=== PATIENT | female | born 1965 | race Caucasian/White ===

== ENCOUNTER → 2016-07-24 | Outpatient (CLI) | payer MEDICAID ==
[~2016-07-24] MED LIST: AMBIEN 5MG TABLE5 MG PO; AMITRIPTYLINE H50 M1 PO; APRESOLINE 25MG25 MG PO; ASPI325T6 PO; CATAFLAM50 MG PO; CELEBREX200 MG PO; CELEXA40 MG PO; COLACE 100100 MG/CAP PO; CYMBALTA 30MG30 MG PO; CYMBALTA 60MG60 MG PO; DESYREL 100MG100 MG PO; FENTANYL 100MCG TP; FENTANYL 25 MCG TOP; IMDUR 60MG60 MG/TAB PO; IMDUR60 MG PO; IMITREX 6M6 MG/0.5 M SQ; KLONOPIN 1MG1 MG PO; LASIX 20MG TABL20 MG PO; LASIX20 MG PO; LEXAPRO20 MG PO; LINZESS145CAP PO; LIPITOR 10MG10 MG PO; LISINOPRIL20 MG PO; LUNESTA3 MG PO; MELATONIN3 M1 PO; MUCINEX 60600 MG/TA1 PO; NEURONTIN400 MG PO; NEURONTIN400 MG/CAP PO; NEXIUM 40MG40 MG PO; NEXIUM I.V. 40M40 MG PO; NORCO 325 MG-7.1 TAB PO; POTASSIUM20 MEQ PO; PRINIVIL40 MG PO; REMERON 15M15 MG/TA1 PO; RESTORIL30 MG PO; RETIN-A0.025% TP; ROXICODONE 55 MG/TAB PO; SEROQUEL 2525 MG/TAB PO; SOMA 350MG350 MG/TAB PO; TOPAMAX50 MG PO; TOPROL XL 50MG50 MG PO; TOPROL XL50 MG PO; TRANSZONE3 MG PO; TRETINOIN 0.025% TP; TYLENOL EXTRA500 M1 PO; ULTRAM 50MG TAB50 MG PO; VALIUM 10MG10 MG/TAB PO; XANAX 0.5MG0.5 MG PO; XANAX0.5 MG PO; ZESTRIL 20MG TA20 MG PO; ZOFRAN8 MG PO
== END ==
LOC: COL.RAD 13:34
DX: I71.4 Abdominal aortic aneurysm, without rupture (principal); I51.7 Cardiomegaly; K44.9 Diaphragmatic hernia without obstruction or gangrene
CPT/HCPCS: Q9967

== ENCOUNTER 2017-04-06 16:41 | Emergency (ER) | payer MEDICAID ==
[~2017-04-06] VITALS: Ht 170.2 cm; Wt 101.4 kg
[2017-04-06 17:06] VITALS: BP 143/80; PULSE 96; TEMP 99.9
[2017-04-06 19:23] LABS: BASO # 0.1 (0.0-0.2); BASO % 0.7 % (0.0-2.0); EOS # 0.1 (0.0-0.7); EOS % 1.6 % (0-4.0); GRAN # 4.4 (1.4-6.5); GRAN % 58.6 % (42.2-75.2); HEMATOCRIT 38.1 % (37.0-47.0); HEMOGLOBIN 12.7 g/dl (12.5-16.0); LYMPH # 2.4 (1.2-3.4); LYMPH % 31.7 % (20.0-51.0); MEAN CELL VOLUME 95 fl (80.0-100.0); MEAN CORPUSCULAR HEMOGLOBIN 32 pg (27.0-31.0); MEAN CORPUSCULAR HGB CONC 33 g/dl (33.0-37.0); MEAN PLATELET VOLUME 10.8 fl (7.4-10.4); MONO # 0.5 (0.1-0.6); MONO % 7.1 % (1.7-9.3); PLATELET COUNT 175 K/mm3 (130-400); RED BLOOD COUNT 4.02 M/mm3 (4.10-5.30); REDCELL DISTRIBUTION WIDTH-CV 12.7 % (11.5-14.5)
[2017-04-06 19:32] LABS: ALBUMIN 4.1 gm/dL (3.5-5.0); BILIRUBIN,TOTAL 0.4 mg/dL (0.0-1.0); CALCIUM 9.1 mg/dL (8.4-10.2); CREATININE, serum 0.86 mg/dL (0.52-1.25); POTASSIUM 3.5 mmol/L (3.4-5.0); TOTAL PROTEIN 7.1 gm/dL (6.4-8.2)
[2017-04-06 20:16] LABS: COLLECTION METHOD CLEAN CATCH
[2017-04-06 20:22] LABS: PH 6 (5-8); SQUAMOUS EPITHELIAL None Seen /hpf; URINE APPEARANCE Clear; URINE BACTERIA None Seen /hpf; URINE BILIRUBIN Negative (NEGATIVE); URINE BLOOD Negative (NEGATIVE); URINE COLOR Straw; URINE GLUCOSE Negative (NEGATIVE); URINE KETONE Negative (NEGATIVE); URINE LEUKOCYTE ESTERASE Negative (NEGATIVE); URINE NITRATE Negative (NEGATIVE); URINE PROTEIN(semi-quant) Negative (NEGATIVE); URINE RBC 0-2 /hpf; URINE UROBILINOGEN Negative (NEGATIVE)
[2017-04-06] MEDS ORDERED: PERCOCET 325 MG1 TA2 PO (21:07)
== END 2017-04-06 21:38 | disposition home or self-care (01) ==
LOC: COL.ER 16:41
PROVIDERS: Emergency Medicine
DX: M54.16 Radiculopathy, lumbar region (principal); K21.9 Gastro-esophageal reflux disease without esophagitis; E78.00 Pure hypercholesterolemia, unspecified; Z87.891 Personal history of nicotine dependence
CPT/HCPCS: J1170; J2405

== ENCOUNTER → 2017-06-29 | Outpatient (CLI) | payer MEDICAID ==
[~2017-06-29] MED LIST changes: +PERCOCET 325 MG1 TA2 PO
== END ==
LOC: MC.RAD 13:58
DX: Z12.31 Encounter for screening mammogram for malignant neoplasm of breast (principal)

== ENCOUNTER 2017-07-03 02:05 | Inpatient (IN) | payer MEDICAID ==
[~2017-07-03] VITALS: Ht 170.2 cm; Wt 94.8 kg
[2017-07-03] VITALS (1160 sets, daily range): BP systolic 135–165; BP diastolic 82–122; PULSE 55–77; TEMP 98–98.7; O2SAT 73–100
[~2017-07-03 02:05] MED LIST changes: +K-TAB10; -POTASSIUM20 MEQ PO
[2017-07-03 04:16] LABS: BASO % 0.4 % (0.0-2.0); EOS # 0.1 (0.0-0.7); EOS % 0.9 % (0-4.0); GRAN # 4.5 (1.4-6.5); GRAN % 64.3 % (42.2-75.2); LYMPH # 1.9 (1.2-3.4); LYMPH % 26.5 % (20.0-51.0); MEAN CELL VOLUME 92 fl (80.0-100.0); MEAN CORPUSCULAR HGB CONC 33 g/dl (33.0-37.0); MONO # 0.5 (0.1-0.6); MONO % 7.6 % (1.7-9.3); PLATELET COUNT 143 K/mm3 (130-400); RED BLOOD COUNT 3.82 M/mm3 (4.10-5.30); REDCELL DISTRIBUTION WIDTH-CV 13.9 % (11.5-14.5)
[2017-07-03 04:17] LABS: HEMATOCRIT 35.3 % (37.0-47.0); HEMOGLOBIN 11.7 g/dl (12.5-16.0); MEAN CORPUSCULAR HEMOGLOBIN 31 pg (27.0-31.0)
[2017-07-03 04:27] LABS: ALBUMIN 3.5 gm/dL (3.5-5.0); BILIRUBIN,TOTAL 0.5 mg/dL (0.0-1.0); CALCIUM 8.5 mg/dL (8.4-10.2); CREATININE, serum 0.62 mg/dL (0.52-1.25); MAGNESIUM 1.8 mg/dL (1.6-2.3); POTASSIUM 3.2 mmol/L (3.4-5.0)
[2017-07-03 04:43] LABS: TROPONIN-I 0.249 ng/mL (0.000-0.034)
[2017-07-03 05:38] LABS: INR 1.3 (0.8-3.0); PROTHROMBIN TIME 14.8 SECONDS (9.7-12.8)
[2017-07-03 05:40] LABS: PARTIAL THROMBOPLASTIN TIME 32.9 SECONDS (26.0-37.0)
[2017-07-03 06:18] LABS: ARTERIAL BLD GAS O2 SATURATION 95.7 % (92-100); ARTERIAL BLD GAS TCO2 CT 29.5; ARTERIAL BLOOD GAS HCO3 28.1 meq/L (22-26); ARTERIAL BLOOD GAS PCO2 45.2 mmHg (35-45); ARTERIAL BLOOD GAS pH 7.41 (7.35-7.45)
[2017-07-03] MEDS ORDERED: LOPRESSOR 225 MG/TAB PO (07:05)
[2017-07-03] MEDS ORDERED: RESTORIL30 MG PO ×2 (07:05→16:19)
[2017-07-03] MEDS ORDERED: MINIPRESS2 MG PO (07:07)
[2017-07-03] MEDS ORDERED: CATAPRES-TTS 30.3 MG TD (07:17)
[2017-07-03] MEDS ORDERED: REQUIP 1MG T1 MG/TAB PO (07:18)
[2017-07-03] MEDS ORDERED: SAVELLA50 MG PO (07:18)
[2017-07-03] MEDS ORDERED: CATAFLAM50 MG PO (07:18)
[2017-07-03] MEDS ORDERED: AMBIEN CR 12.12.5 MG PO (07:19)
[2017-07-03] MEDS ORDERED: COZAAR100 MG PO (07:19)
[2017-07-03] MEDS ORDERED: IRON TABLETS325 MG PO (07:19)
[2017-07-03] MEDS ORDERED: PROZAC40 MG PO (07:20)
[2017-07-03 11:28] LABS: TRICYCLIC ANTIDEPRESS URINE NEGATIVE
[2017-07-03] MEDS ORDERED: CELEXA40 MG PO (16:05)
[2017-07-03] MEDS ORDERED: TOPAMAX 100MG100 M1 PO (16:07)
[2017-07-04] VITALS (656 sets, daily range): BP systolic 147–202; BP diastolic 87–109; PULSE 52–131; TEMP 97.6–98.3; O2SAT 77–100
[2017-07-05 00:21] VITALS: BP 172/85; PULSE 75; TEMP 98.2
[2017-07-05 03:30] VITALS: BP 137/69; PULSE 68; TEMP 98.1
[2017-07-05 06:26] LABS: BASO % 0.4 % (0.0-2.0); EOS # 0.2 (0.0-0.7); EOS % 4.9 % (0-4.0); GRAN # 2.7 (1.4-6.5); GRAN % 60.2 % (42.2-75.2); LYMPH # 1.1 (1.2-3.4); LYMPH % 23.4 % (20.0-51.0); MEAN CELL VOLUME 95 fl (80.0-100.0); MEAN CORPUSCULAR HGB CONC 32 g/dl (33.0-37.0); MEAN PLATELET VOLUME 11.5 fl (7.4-10.4); MONO # 0.5 (0.1-0.6); MONO % 10.7 % (1.7-9.3); PLATELET COUNT 142 K/mm3 (130-400); REDCELL DISTRIBUTION WIDTH-CV 13.9 % (11.5-14.5)
[2017-07-05 06:39] LABS: HEMATOCRIT 30.5 % (37.0-47.0); HEMOGLOBIN 9.8 g/dl (12.5-16.0); MEAN CORPUSCULAR HEMOGLOBIN 31 pg (27.0-31.0)
[2017-07-05 06:50] LABS: CALCIUM 8.2 mg/dL (8.4-10.2); CREATININE, serum 0.55 mg/dL (0.52-1.25); POTASSIUM 3.8 mmol/L (3.4-5.0)
[2017-07-05 07:42] VITALS: BP 159/85; PULSE 59; TEMP 98.1
[2017-07-05 11:39] VITALS: BP 149/77; PULSE 96; TEMP 98.5
[2017-07-05 15:57] VITALS: BP 153/92; PULSE 63; TEMP 98.3
[2017-07-05 20:28] VITALS: BP 165/95; PULSE 83; TEMP 98.6
[2017-07-06 00:41] VITALS: BP 155/82; PULSE 71; TEMP 98.6
[2017-07-06 05:22] VITALS: BP 157/88; PULSE 72; TEMP 98.6
[2017-07-06 06:34] LABS: BASO % 0.4 % (0.0-2.0); EOS # 0.3 (0.0-0.7); EOS % 5.1 % (0-4.0); GRAN # 2.9 (1.4-6.5); GRAN % 57.4 % (42.2-75.2); LYMPH # 1.4 (1.2-3.4); LYMPH % 27.5 % (20.0-51.0); MEAN CELL VOLUME 94 fl (80.0-100.0); MEAN CORPUSCULAR HGB CONC 33 g/dl (33.0-37.0); MEAN PLATELET VOLUME 11.2 fl (7.4-10.4); MONO # 0.5 (0.1-0.6); MONO % 8.8 % (1.7-9.3); PLATELET COUNT 168 K/mm3 (130-400); RED BLOOD COUNT 3.31 M/mm3 (4.10-5.30); REDCELL DISTRIBUTION WIDTH-CV 13.9 % (11.5-14.5)
[2017-07-06 06:42] LABS: ALBUMIN 3.2 gm/dL (3.5-5.0); BILIRUBIN,TOTAL 0.3 mg/dL (0.0-1.0); CREATININE, serum 0.61 mg/dL (0.52-1.25); HEMOGLOBIN 10.1 g/dl (12.5-16.0); MAGNESIUM 1.7 mg/dL (1.6-2.3); MEAN CORPUSCULAR HEMOGLOBIN 31 pg (27.0-31.0); POTASSIUM 3.3 mmol/L (3.4-5.0); TOTAL PROTEIN 6.4 gm/dL (6.4-8.2)
[2017-07-06 07:38] VITALS: BP 159/93; PULSE 70; TEMP 98.3
[2017-07-06] MEDS ORDERED: LEVAQUIN 750MG750 M1 PO (08:41)
[2017-07-06] MEDS ORDERED: PROAIR HFA0.09 MG/AC IH (08:42)
[2017-07-06] MEDS ORDERED: BRILINTA90 MG PO (08:42)
[2017-07-06] MEDS ORDERED: IMDUR 30MG30 MG/TAB PO (08:43)
[2017-07-06] MEDS ORDERED: ASPIRIN E.C. 8181 MG PO (08:43)
[2017-07-06] MEDS ORDERED: NORCO 325 MG-51 TAB PO (09:02)
[2017-07-06 12:11] VITALS: BP 160/90; PULSE 85; TEMP 98.5
[2017-07-06 15:47] LABS: TRICYCLIC ANTIDEPRESS URINE NEGATIVE
== END 2017-07-06 16:29 | disposition home or self-care (01) | DRG 193 ==
LOC: IMCU 02:05 → ICU 02:07 → MEDICAL 07-04 15:09
PROVIDERS: Internal Medicine; Internal Medicine Pulmonary Disease; Nurse Practitioner Family
PROC: 02HV33Z Insertion of Infusion Device into Superior Vena Cava, Percutaneous Approach (ICD-10-PCS; principal; 2017-07-04)
DX: J15.9 Unspecified bacterial pneumonia (principal); I21.A1 Myocardial infarction type 2; J96.01 Acute respiratory failure with hypoxia; I16.0 Hypertensive urgency; I10 Essential (primary) hypertension; M79.7 Fibromyalgia; G89.21 Chronic pain due to trauma; M54.5 Low back pain; Z87.891 Personal history of nicotine dependence; E87.6 Hypokalemia; F11.10 Opioid abuse, uncomplicated; F15.10 Other stimulant abuse, uncomplicated; I35.1 Nonrheumatic aortic (valve) insufficiency
CPT/HCPCS: 99222; 99223-AI; 99233-AI; 99239; C1751; J1644; J1650; J2270; J2543; J3370; J7030; J7040; J7050

== ENCOUNTER → 2017-07-18 | Outpatient (CLI) | payer MEDICAID ==
[~2017-07-18] MED LIST changes: +AMBIEN CR 12.12.5 MG PO; +ASPIRIN E.C. 8181 MG PO; +BRILINTA90 MG PO; +CATAPRES-TTS 30.3 MG TD; +COZAAR100 MG PO; +IMDUR 30MG30 MG/TAB PO; +IRON TABLETS325 MG PO; +LEVAQUIN 750MG750 M1 PO; +LOPRESSOR 225 MG/TAB PO; +MINIPRESS2 MG PO; +NORCO 325 MG-51 TAB PO; +PROAIR HFA0.09 MG/AC IH; +PROZAC40 MG PO; +REQUIP 1MG T1 MG/TAB PO; +SAVELLA50 MG PO; +TOPAMAX 100MG100 M1 PO
[2017-07-18 16:06] LABS: BASO # 0.1 (0.0-0.2); EOS # 0.2 (0.0-0.7); EOS % 3.6 % (0-4.0); GRAN # 3.1 (1.4-6.5); GRAN % 51.3 % (42.2-75.2); LYMPH # 2.4 (1.2-3.4); LYMPH % 39.1 % (20.0-51.0); MEAN CELL VOLUME 94 fl (80.0-100.0); MEAN CORPUSCULAR HEMOGLOBIN 31 pg (27.0-31.0); MEAN CORPUSCULAR HGB CONC 33 g/dl (33.0-37.0); MEAN PLATELET VOLUME 10.4 fl (7.4-10.4); MONO # 0.3 (0.1-0.6); MONO % 4.8 % (1.7-9.3); PLATELET COUNT 260 K/mm3 (130-400); RED BLOOD COUNT 3.87 M/mm3 (4.10-5.30); REDCELL DISTRIBUTION WIDTH-CV 13.8 % (11.5-14.5)
[2017-07-18 16:09] LABS: HEMATOCRIT 36.3 % (37.0-47.0)
[2017-07-18 23:43] LABS: PROCALCITONIN <0.02 ng/mL (0.00-0.09)
== END ==
LOC: COL.RAD 15:33
PROVIDERS: Internal Medicine Pulmonary Disease
DX: I51.7 Cardiomegaly (principal); J18.9 Pneumonia, unspecified organism

== ENCOUNTER 2017-07-19 15:44 | Emergency (ER) | payer MEDICAID ==
[~2017-07-19] VITALS: Ht 170.2 cm; Wt 89.5 kg
[2017-07-19 16:29] LABS: BASO % 1.1 % (0.0-2.0); EOS # 0.2 (0.0-0.7); EOS % 5.2 % (0-4.0); GRAN # 1.5 (1.4-6.5); GRAN % 40.5 % (42.2-75.2); HEMOGLOBIN 10.7 g/dl (12.5-16.0); LYMPH # 1.7 (1.2-3.4); MEAN CELL VOLUME 94 fl (80.0-100.0); MEAN CORPUSCULAR HEMOGLOBIN 30 pg (27.0-31.0); MEAN CORPUSCULAR HGB CONC 32 g/dl (33.0-37.0); MEAN PLATELET VOLUME 10.8 fl (7.4-10.4); MONO # 0.3 (0.1-0.6); MONO % 6.9 % (1.7-9.3); PLATELET COUNT 243 K/mm3 (130-400); RED BLOOD COUNT 3.55 M/mm3 (4.10-5.30); REDCELL DISTRIBUTION WIDTH-CV 13.9 % (11.5-14.5)
[2017-07-19 16:30] LABS: HEMATOCRIT 33.3 % (37.0-47.0)
[2017-07-19 16:42] LABS: ALANINE AMINOTRANSFERASE 251 U/L (9-52); ALBUMIN 3.6 gm/dL (3.5-5.0); ALKALINE PHOSPHATASE 151 U/L (50-136); ANION GAP 12 mmol/L (7-16); AST,SGOT 221 U/L (15-37); BILIRUBIN,TOTAL 0.5 mg/dL (0.0-1.0); BLOOD UREA NITROGEN 12 mg/dL (7-17); CALCIUM 8.8 mg/dL (8.4-10.2); CARBON DIOXIDE 25 mmol/L (22-30); CHLORIDE 105 mmol/L (98-107); CREATININE, serum 0.75 mg/dL (0.52-1.25); GLUCOSE 103 mg/dL (74-106); POTASSIUM 4.1 mmol/L (3.4-5.0); SODIUM 142 mmol/L (137-145); TOTAL PROTEIN 6.8 gm/dL (6.4-8.2)
[2017-07-19 16:44] LABS: ACETAMINOPHEN < 10 ug/mL (10-30); ALCOHOL(ethanol),MEDICAL < 10 mg/dL; C-REACTIVE PROTEIN < 0.5 mg/dL (0.0-0.9); SALICYLATE < 1.0 mg/dL
[2017-07-19 16:45] LABS: COLLECTION METHOD CLEAN CATCH
[2017-07-19 16:51] LABS: TROPONIN-I 0.026 ng/mL (0.000-0.034)
[2017-07-19 16:51] LABS: PH 6 (5-8); SQUAMOUS EPITHELIAL 0-2 /hpf; URINE APPEARANCE Clear; URINE BACTERIA None Seen /hpf; URINE BILIRUBIN Negative (NEGATIVE); URINE BLOOD Negative (NEGATIVE); URINE COLOR Yellow; URINE GLUCOSE Negative (NEGATIVE); URINE KETONE Negative (NEGATIVE); URINE LEUKOCYTE ESTERASE Negative (NEGATIVE); URINE NITRATE Negative (NEGATIVE); URINE PROTEIN(semi-quant) Negative (NEGATIVE); URINE RBC 0-2 /hpf; URINE UROBILINOGEN Negative (NEGATIVE)
[2017-07-19 16:54] VITALS: TEMP 97
[2017-07-19 17:02] LABS: TRICYCLIC ANTIDEPRESS URINE NEGATIVE
[2017-07-19 18:52] VITALS: BP 117/75; PULSE 53
== END 2017-07-19 18:53 | disposition home or self-care (01) ==
LOC: COL.ER 15:44
PROVIDERS: Emergency Medicine
DX: R07.9 Chest pain, unspecified (principal); R41.0 Disorientation, unspecified; I25.2 Old myocardial infarction; I10 Essential (primary) hypertension; J45.909 Unspecified asthma, uncomplicated; Z87.39 Personal history of other diseases of the musculoskeletal system and connective tissue; Z87.891 Personal history of nicotine dependence

== ENCOUNTER 2017-08-17 19:18 | Emergency (ER) | payer MEDICAID ==
[~2017-08-17] VITALS: Ht 170.2 cm; Wt 86.4 kg
[2017-08-17 19:19] VITALS: TEMP 98
[2017-08-17 20:10] LABS: BASO % 0.5 % (0.0-2.0); EOS % 0.7 % (0-4.0); GRAN # 2.6 (1.4-6.5); GRAN % 60.8 % (42.2-75.2); HEMATOCRIT 37.1 % (37.0-47.0); HEMOGLOBIN 12.6 g/dl (12.5-16.0); LYMPH # 1.4 (1.2-3.4); LYMPH % 33.1 % (20.0-51.0); MEAN CELL VOLUME 92 fl (80.0-100.0); MEAN CORPUSCULAR HEMOGLOBIN 31 pg (27.0-31.0); MEAN CORPUSCULAR HGB CONC 34 g/dl (33.0-37.0); MEAN PLATELET VOLUME 10.4 fl (7.4-10.4); MONO # 0.2 (0.1-0.6); MONO % 4.7 % (1.7-9.3); PLATELET COUNT 214 K/mm3 (130-400); RED BLOOD COUNT 4.04 M/mm3 (4.10-5.30); REDCELL DISTRIBUTION WIDTH-CV 13.2 % (11.5-14.5)
[2017-08-17 20:20] LABS: ALBUMIN 3.9 gm/dL (3.5-5.0); BILIRUBIN,TOTAL 0.5 mg/dL (0.0-1.0); CALCIUM 8.8 mg/dL (8.4-10.2); CREATININE, serum 0.73 mg/dL (0.52-1.25); POTASSIUM 3.5 mmol/L (3.4-5.0); TOTAL PROTEIN 7.2 gm/dL (6.4-8.2)
[2017-08-17 20:45] VITALS: BP 122/67; PULSE 85
== END 2017-08-17 22:03 | disposition home or self-care (01) ==
LOC: COL.ER 19:18
PROVIDERS: Family Medicine
DX: S06.0X0A Concussion without loss of consciousness, initial encounter (principal); S05.12XA Contusion of eyeball and orbital tissues, left eye, initial encounter; R41.0 Disorientation, unspecified; F10.129 Alcohol abuse with intoxication, unspecified; I10 Essential (primary) hypertension; F41.9 Anxiety disorder, unspecified; Y04.2XXA Assault by strike against or bumped into by another person, initial encounter; Y90.6 Blood alcohol level of 120-199 mg/100 ml

== ENCOUNTER → 2017-10-04 | Outpatient (REF) | LOC: COL.LAB 14:16 | DX: Z01.89 Encounter for other specified special examinations (principal) ==

== ENCOUNTER → 2018-01-01 | Outpatient (CLI) | payer MEDICAID | LOC: COL.PUL 12-12 10:00 | DX: R06.02 Shortness of breath (principal); Z87.891 Personal history of nicotine dependence | CPT/HCPCS: J7674 ==

== ENCOUNTER 2018-02-25 12:06 | Day surgery (SDC) | payer MEDICAID ==
[2018-02-25] VITALS (12 sets, daily range): BP systolic 114–188; BP diastolic 58–91; PULSE 56–95; TEMP 97.8–98.2
[~2018-02-25] VITALS: Ht 170.3 cm; Wt 94.0 kg
[2018-02-25 13:06] LABS: HEMATOCRIT 37.7 % (37.0-47.0); HEMOGLOBIN 12.5 g/dl (12.5-16.0); MEAN CELL VOLUME 95 fl (80.0-100.0); MEAN CORPUSCULAR HEMOGLOBIN 32 pg (27.0-31.0); MEAN CORPUSCULAR HGB CONC 33 g/dl (33.0-37.0); MEAN PLATELET VOLUME 10.7 fl (7.4-10.4); PLATELET COUNT 200 K/mm3 (130-400); RED BLOOD COUNT 3.97 M/mm3 (4.10-5.30); REDCELL DISTRIBUTION WIDTH-CV 12.6 % (11.5-14.5)
[2018-02-25 13:09] LABS: INR 1.2 (0.8-3.0); PROTHROMBIN TIME 13.1 SECONDS (9.7-12.8)
[2018-02-25 13:10] LABS: CREATININE, serum 0.77 mg/dL (0.52-1.25)
[2018-02-25] MEDS ORDERED: NEXIUM 20MG20 MG PO (13:41)
[2018-02-25] MEDS ORDERED: IMDUR 60MG60 MG/TAB PO (13:43)
[2018-02-25] MEDS ORDERED: LASIX 20MG TABL20 MG PO (13:46)
[2018-02-25] MEDS ORDERED: ASPIRIN E.C. 8181 MG PO (13:47)
[2018-02-25] MEDS ORDERED: FLEXERIL 1010 MG/TAB PO (13:51)
[2018-02-26 01:15] VITALS: BP 141/83; PULSE 91; TEMP 97.2
[2018-02-26 03:38] VITALS: BP 113/77; PULSE 94; PULSE 95; TEMP 97.5
[2018-02-26 08:51] VITALS: BP 120/69; PULSE 86; TEMP 97.8
[2018-02-26 09:03] VITALS: BP 120/69; PULSE 86; TEMP 97.8
[2018-02-26 12:01] VITALS: BP 124/75; PULSE 86; TEMP 98.3
== END 2018-02-26 17:24 | disposition home or self-care (01) ==
LOC: COL.CAR 12:06 → MEDICAL 15:49 → COL.CAR 02-26 17:24
PROVIDERS: Internal Medicine Interventional Cardiology
DX: I25.10 Atherosclerotic heart disease of native coronary artery without angina pectoris (principal); I35.1 Nonrheumatic aortic (valve) insufficiency; I71.2 Thoracic aortic aneurysm, without rupture; Z79.899 Other long term (current) drug therapy; I10 Essential (primary) hypertension; M79.604 Pain in right leg; M79.605 Pain in left leg; R60.0 Localized edema; R06.02 Shortness of breath; R53.83 Other fatigue
CPT/HCPCS: OP; J1644; J2250; J3010; Q9967

== ENCOUNTER 2018-03-08 11:15 | Emergency (ER) | payer MEDICAID ==
[~2018-03-08] VITALS: Ht 170.2 cm; Wt 91.4 kg
[~2018-03-08 11:15] MED LIST changes: +FLEXERIL 1010 MG/TAB PO; +NEXIUM 20MG20 MG PO
[2018-03-08 11:20] VITALS: BP 117/53; TEMP 98.1
[2018-03-08 11:49] LABS: COLLECTION METHOD CLEAN CATCH
[2018-03-08 11:58] LABS: MUCOUS Present /lpf; PH 5 (5-8); URINE APPEARANCE Hazy; URINE BACTERIA Rare /hpf; URINE BILIRUBIN Negative (NEGATIVE); URINE BLOOD 2+ (NEGATIVE); URINE COLOR Yellow; URINE GLUCOSE Negative (NEGATIVE); URINE KETONE Negative (NEGATIVE); URINE LEUKOCYTE ESTERASE 2+ (NEGATIVE); URINE NITRATE Positive (NEGATIVE); URINE PROTEIN(semi-quant) Negative (NEGATIVE); URINE UROBILINOGEN Negative (NEGATIVE)
[2018-03-08 12:10] LABS: BASO % 0.6 % (0.0-2.0); EOS # 0.2 (0.0-0.7); EOS % 2.9 % (0-4.0); GRAN # 3.9 (1.4-6.5); GRAN % 60.5 % (42.2-75.2); HEMATOCRIT 38.7 % (37.0-47.0); HEMOGLOBIN 12.8 g/dl (12.5-16.0); LYMPH # 1.8 (1.2-3.4); LYMPH % 28.5 % (20.0-51.0); MEAN CELL VOLUME 95 fl (80.0-100.0); MEAN CORPUSCULAR HEMOGLOBIN 31 pg (27.0-31.0); MEAN CORPUSCULAR HGB CONC 33 g/dl (33.0-37.0); MEAN PLATELET VOLUME 10.5 fl (7.4-10.4); MONO # 0.5 (0.1-0.6); PLATELET COUNT 260 K/mm3 (130-400); RED BLOOD COUNT 4.09 M/mm3 (4.10-5.30)
[2018-03-08 12:22] LABS: ALANINE AMINOTRANSFERASE 52 U/L (9-52); ALBUMIN 4.2 gm/dL (3.5-5.0); ALKALINE PHOSPHATASE 118 U/L (50-136); ANION GAP 7 mmol/L (7-16); AST,SGOT 26 U/L (15-37); BILIRUBIN,TOTAL 0.4 mg/dL (0.0-1.0); BLOOD UREA NITROGEN 19 mg/dL (7-17); C-REACTIVE PROTEIN < 0.5 mg/dL (0.0-0.9); CALCIUM 9.3 mg/dL (8.4-10.2); CARBON DIOXIDE 24 mmol/L (22-30); CHLORIDE 112 mmol/L (98-107); CREATININE, serum 0.84 mg/dL (0.52-1.25); GLUCOSE 112 mg/dL (74-106); LIPASE 179 U/L (23-300); POTASSIUM 4.1 mmol/L (3.4-5.0); SODIUM 143 mmol/L (137-145); TOTAL PROTEIN 7.6 gm/dL (6.4-8.2)
[2018-03-08] MEDS ORDERED: LOPRESSOR 550 MG/TAB PO (12:31)
[2018-03-08] MEDS ORDERED: IMITREX100 MG PO (12:34)
[2018-03-08] MEDS ORDERED: NORVASC 5MG5 MG/TAB PO (12:36)
[2018-03-08] MEDS ORDERED: ANUSOL HC CREAM30 GM TP (12:59)
[2018-03-08] MEDS ORDERED: PERCOCET 325 MG1 TA2 PO (12:59)
[2018-03-08] MEDS ORDERED: COLACE 100100 MG/CAP PO (12:59)
[2018-03-08 13:40] VITALS: PULSE 81
[2018-03-09] MEDS ORDERED: CEPHALEXIN500 M1 PO (12:06)
== END 2018-03-08 13:40 | disposition home or self-care (01) ==
LOC: COL.ER 11:15
PROVIDERS: Emergency Medicine
DX: K92.2 Gastrointestinal hemorrhage, unspecified (principal); M54.5 Low back pain; G89.29 Other chronic pain; Z79.82 Long term (current) use of aspirin; Z86.79 Personal history of other diseases of the circulatory system

== ENCOUNTER 2018-04-22 16:09 | Emergency (ER) | payer MEDICAID ==
[~2018-04-22] VITALS: Ht 170.2 cm; Wt 100.9 kg
[~2018-04-22 16:09] MED LIST changes: +ANUSOL HC CREAM30 GM TP; +CEPHALEXIN500 M1 PO; +IMITREX100 MG PO; +LOPRESSOR 550 MG/TAB PO; +NORVASC 5MG5 MG/TAB PO
[2018-04-22 16:11] VITALS: TEMP 98.7
[2018-04-22 16:52] LABS: BASO % 0.7 % (0.0-2.0); EOS # 0.1 (0.0-0.7); GRAN # 3.4 (1.4-6.5); GRAN % 57.9 % (42.2-75.2); HEMATOCRIT 37.8 % (37.0-47.0); HEMOGLOBIN 12.5 g/dl (12.5-16.0); LYMPH # 1.9 (1.2-3.4); LYMPH % 32.7 % (20.0-51.0); MEAN CELL VOLUME 94 fl (80.0-100.0); MEAN CORPUSCULAR HEMOGLOBIN 31 pg (27.0-31.0); MEAN CORPUSCULAR HGB CONC 33 g/dl (33.0-37.0); MEAN PLATELET VOLUME 10.8 fl (7.4-10.4); MONO # 0.4 (0.1-0.6); MONO % 6.5 % (1.7-9.3); PLATELET COUNT 199 K/mm3 (130-400); RED BLOOD COUNT 4.02 M/mm3 (4.10-5.30); REDCELL DISTRIBUTION WIDTH-CV 12.2 % (11.5-14.5)
[2018-04-22 17:03] LABS: ALBUMIN 3.7 gm/dL (3.5-5.0); BILIRUBIN,TOTAL 0.2 mg/dL (0.0-1.0); CALCIUM 8.9 mg/dL (8.4-10.2); CREATININE, serum 0.73 mg/dL (0.52-1.25); POTASSIUM 3.8 mmol/L (3.4-5.0); TOTAL PROTEIN 6.9 gm/dL (6.4-8.2)
[2018-04-22 17:14] LABS: TROPONIN-I 0.018 ng/mL (0.000-0.035)
[2018-04-22 18:02] LABS: COLLECTION METHOD CLEAN CATCH
[2018-04-22 18:20] LABS: MUCOUS Present /lpf; PH 5 (5-8); URINE APPEARANCE Hazy; URINE BACTERIA Rare /hpf; URINE BILIRUBIN Negative (NEGATIVE); URINE BLOOD Negative (NEGATIVE); URINE COLOR Amber; URINE GLUCOSE Negative (NEGATIVE); URINE KETONE Trace (NEGATIVE); URINE LEUKOCYTE ESTERASE 1+ (NEGATIVE); URINE NITRATE Negative (NEGATIVE); URINE PROTEIN(semi-quant) Negative (NEGATIVE); URINE UROBILINOGEN Negative (NEGATIVE)
[2018-04-22] MEDS ORDERED: CEPHALEXIN500 M1 PO (20:13)
[2018-04-22 20:30] VITALS: BP 120/60; PULSE 62
[2018-04-22] MEDS ORDERED: FLEXERIL 1010 MG/TAB PO (20:31)
== END 2018-04-22 20:45 | disposition home or self-care (01) ==
LOC: COL.ER 16:09
PROVIDERS: Emergency Medicine
DX: I71.9 Aortic aneurysm of unspecified site, without rupture (principal); N39.0 Urinary tract infection, site not specified; M54.9 Dorsalgia, unspecified; G89.29 Other chronic pain; I11.0 Hypertensive heart disease with heart failure; I50.9 Heart failure, unspecified; F32.9 Major depressive disorder, single episode, unspecified; M79.7 Fibromyalgia; Z79.82 Long term (current) use of aspirin; Z79.899 Other long term (current) drug therapy; Z87.891 Personal history of nicotine dependence
CPT/HCPCS: J1885; J2270; J7030; Q9967

== ENCOUNTER 2020-10-22 10:30 | Outpatient (CLI) | payer MEDICAID ==
--- NOTE | 2020-10-14 09:47 | NUR ---
CALLED AND THE NUMBER WAS BUSY. THE FIRST NUMBER IS NO LONGER IN SERVICE.
[2020-10-22] VITALS (8 sets, daily range): BP systolic 105–126; BP diastolic 60–84; PULSE 45–51; TEMP 98.2
[~2020-10-22] VITALS: Ht 170.2 cm; Wt 103.6 kg
[~2020-10-22 10:30] MED LIST changes: +LASIX 40MG TABL40 MG PO; -LOPRESSOR 550 MG/TAB PO; +TOPROL XL100 MG PO
[2020-10-22 11:20] LABS: MEAN CELL VOLUME 95 fl (80.0-100.0); MEAN CORPUSCULAR HEMOGLOBIN 30 pg (27.0-31.0); MEAN CORPUSCULAR HGB CONC 32 g/dl (33.0-37.0); MEAN PLATELET VOLUME 10.2 fl (7.4-10.4); PLATELET COUNT 180 K/mm3 (130-400); RED BLOOD COUNT 4.01 M/mm3 (4.10-5.30); REDCELL DISTRIBUTION WIDTH-CV 12.8 % (11.5-14.5)
[2020-10-22 11:30] LABS: CALCIUM 8.7 mg/dL (8.4-10.2); CREATININE, serum 0.68 (0.52-1.25); POTASSIUM 4.3 mmol/L (3.4-5.0)
[2020-10-22 11:37] LABS: INR 1.1 (0.8-3.0); PROTHROMBIN TIME 11.9 SECONDS (9.7-12.8)
[2020-10-22] MEDS ORDERED: CELEXA40 MG PO (12:28)
[2020-10-22] MEDS ORDERED: B-12 500 MCG PO (12:32)
[2020-10-22] MEDS ORDERED: PERCOCET 325 MG1 TA2 PO (12:34)
[2020-10-22] MEDS ORDERED: NITROSTAT0.4 MG/TAB SL (12:41)
--- NOTE | 2020-10-22 15:24 | NUR ---
Discharge instructions given to pt.Pt verbalizes understadning.INT removed,cathetr tip intact.Pt escorted out via wheelchair by this nurse.
== END 2020-10-22 16:15 ==
LOC: COL.RAD 10:30
PROVIDERS: Internal Medicine Cardiovascular Disease
DX: R06.02 Shortness of breath (principal); Z95.2 Presence of prosthetic heart valve
CPT/HCPCS: J2704

== ENCOUNTER 2020-10-31 17:51 | Emergency (ER) | payer MEDICAID ==
[~2020-10-31] VITALS: Ht 170.2 cm; Wt 101.4 kg
[~2020-10-31 17:51] MED LIST changes: +B-12 500 MCG PO; +NITROSTAT0.4 MG/TAB SL
[2020-10-31 18:02] VITALS: TEMP 99.4
[2020-10-31 18:50] LABS: BASO % 0.4 % (0.0-2.0); EOS # 0.1 (0.0-0.7); EOS % 1.5 % (0-4.0); GRAN % 68.8 % (42.2-75.2); HEMOGLOBIN 11.4 g/dl (12.5-16.0); LYMPH # 1.6 (1.2-3.4); LYMPH % 22.5 % (20.0-51.0); MEAN CELL VOLUME 95 fl (80.0-100.0); MEAN CORPUSCULAR HEMOGLOBIN 30 pg (27.0-31.0); MEAN CORPUSCULAR HGB CONC 31 g/dl (33.0-37.0); MEAN PLATELET VOLUME 10.5 fl (7.4-10.4); MONO # 0.5 (0.1-0.6); MONO % 6.7 % (1.7-9.3); PLATELET COUNT 200 K/mm3 (130-400); RED BLOOD COUNT 3.86 M/mm3 (4.10-5.30)
[2020-10-31 18:54] LABS: ALANINE AMINOTRANSFERASE 11 U/L (4-34); ALBUMIN 3.8 gm/dL (3.5-5.0); ALKALINE PHOSPHATASE 69 U/L (50-136); ANION GAP 6 mmol/L (7-16); AST,SGOT 23 U/L (15-37); BILIRUBIN,TOTAL 0.2 mg/dL (0.0-1.0); BLOOD UREA NITROGEN 17 mg/dL (7-17); CALCIUM 8.5 mg/dL (8.4-10.2); CARBON DIOXIDE 34 mmol/L (22-30); CHLORIDE 99 mmol/L (98-107); CREATININE, serum 0.98 (0.52-1.25); GLUCOSE 113 mg/dL (74-106); POTASSIUM 3.8 mmol/L (3.4-5.0); SODIUM 139 mmol/L (137-145); TOTAL PROTEIN 7.3 gm/dL (6.4-8.2)
[2020-10-31 18:57] LABS: HEMATOCRIT 36.5 % (37.0-47.0)
[2020-10-31 19:06] LABS: TROPONIN-I < 0.012 ng/mL (0.000-0.035)
[2020-10-31 20:00] LABS: COLLECTION METHOD CLEAN CATCH
[2020-10-31 20:07] LABS: PH 5 (5-8); SQUAMOUS EPITHELIAL 0-2 /hpf; URINE APPEARANCE Clear; URINE BACTERIA None Seen /hpf; URINE BILIRUBIN Negative (NEGATIVE); URINE BLOOD Negative (NEGATIVE); URINE COLOR Yellow; URINE GLUCOSE Negative (NEGATIVE); URINE KETONE Negative (NEGATIVE); URINE LEUKOCYTE ESTERASE Negative (NEGATIVE); URINE NITRATE Negative (NEGATIVE); URINE PROTEIN(semi-quant) Negative (NEGATIVE); URINE RBC 0-2 /hpf; URINE UROBILINOGEN Negative (NEGATIVE)
[2020-10-31] MEDS ORDERED: PERCOCET 325 MG1 TA2 PO (21:31)
[2020-10-31 22:00] VITALS: BP 140/82; PULSE 52
== END 2020-10-31 22:01 | disposition home or self-care (01) ==
LOC: COL.ER 17:51
PROVIDERS: Emergency Medicine
DX: M54.6 Pain in thoracic spine (principal); R07.89 Other chest pain; M85.80 Other specified disorders of bone density and structure, unspecified site; I11.0 Hypertensive heart disease with heart failure; I50.9 Heart failure, unspecified; F32.9 Major depressive disorder, single episode, unspecified; G89.29 Other chronic pain; I25.2 Old myocardial infarction; Z20.822 Contact with and (suspected) exposure to COVID-19; Z86.73 Personal history of transient ischemic attack (TIA), and cerebral infarction without residual deficits; Z79.899 Other long term (current) drug therapy; Z79.891 Long term (current) use of opiate analgesic
CPT/HCPCS: J2270; J2405; Q9967

== ENCOUNTER → 2020-12-29 | Outpatient (CLI) | payer MEDICAID | LOC: COL.RAD 12-28 15:30 | DX: I77.810 Thoracic aortic ectasia (principal); I27.20 Pulmonary hypertension, unspecified | CPT/HCPCS: Q9967 ==

== ENCOUNTER → 2021-11-24 | Outpatient (CLI) | payer MEDICAID ==
[~2021-11-24] VITALS: Ht 170.2 cm; Wt 100.8 kg
[~2021-11-24] MED LIST changes: -K-TAB10; +K-TAB10 PO
[2021-11-24 10:57] VITALS: BP 115/72; PULSE 79; TEMP 97.8
[2021-11-24 12:03] VITALS: BP 128/75; PULSE 61
[2021-11-24 12:04] VITALS: BP 144/83; PULSE 56
[2021-11-24 12:05] VITALS: BP 137/84; PULSE 56
[2021-11-24 12:06] VITALS: BP 138/84; PULSE 55
== END ==
LOC: COL.CARD 10:33
DX: R07.89 Other chest pain (principal)
CPT/HCPCS: A9500; J2785